=== PATIENT | female | born 1965 | race African-American/Black ===

== ENCOUNTER 2018-07-24 00:18 | Emergency (ER) | payer SELFPAY ==
[~2018-07-24] VITALS: Ht 162.6 cm; Wt 63.5 kg
--- NOTE | 2018-07-24 00:45 | Emergency Room Report ---
History of Present Illness General Chief Complaint: Skin Rash/Abscess Source: Patient Present Illness HPI Ms. Marinelli presents with rash of both hands for the last 2-4 months. She had a circular lesion on her left wrist after a tattoo 4 months ago. Did not improve. She tried oral and topical antibiotics. She now has several small round lesions on the back of both hands. 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 She wears clothes. Just less than 1 week ago she has a bug bite on right leg with blister. Allergies: Coded Allergies: No Known Allergies (Unverified , 07/24/18) Patient History Past Medical History: see triage record Last Menstrual Period: n/a Reviewed Nursing Documentation: PMH: Agreed; PSxH: Agreed Nursing Documentation-PMH Past Medical History: No Stated History Review of Systems Constitutional: Denies: fever, malaise Gastrointestinal: Denies: abdominal pain Skin: Reports: rash, lesions; Denies: change in hair/nails Neurological: Denies: headache Physical Exam Vital Signs Date Time Temp Pulse Resp B/P (MAP) Pulse Ox O2 Delivery O2 Flow Rate FiO2 07/24/18 00:23 88 16 137/86 98 Room Air Sp02 EP Interpretation: reviewed, normal General Appearance: normal inspection, well appearing, no apparent distress, alert, GCS 15, non-toxic ENT: no angioedema, moist mucus membranes Neck: full range of motion Respiratory: no respiratory distress Psychiatric: normal inspection, judgement/insight normal, memory normal Skin: rash Other Organ Systems multiple small lesions on dorsal aspect of both hands, 2 cm circular lesion on left wrist, white 4 cm plaque left knee right lower leg redness circular 3 cm area with central blister Medical Decision Making Diagnostic Impression: Primary Impression: Tinea manuum Additional Impression: Spider bite ER Course rx: clotrimazole topical, fluconazole for 4 weeks Last Vital Signs Date Time Temp Pulse Resp B/P (MAP) Pulse Ox O2 Delivery O2 Flow Rate FiO2 07/24/18 00:23 88 16 137/86 98 Room Air Liss Irene MD Jul 24, 2018 00:45
[2018-07-24] MEDS ORDERED: DIFLUCAN50 MG ORAL (00:49)
[2018-07-24] MEDS ORDERED: CLOTRIMAZOLE15 GM TOPIC (00:49)
[2018-07-24 00:55] VITALS: BP 137/86
== END 2018-07-24 00:55 | disposition home or self-care (01) ==
LOC: EMR 00:38
DX: B35.2 Tinea manuum (principal); R21 Rash and other nonspecific skin eruption; W57.XXXA Bitten or stung by nonvenomous insect and other nonvenomous arthropods, initial encounter; Y92.9 Unspecified place or not applicable
CPT/HCPCS: 99282

== ENCOUNTER 2018-07-30 17:09 | Emergency (ER) | payer SELFPAY ==
[~2018-07-30] VITALS: Ht 167.6 cm; Wt 71.7 kg
[~2018-07-30 17:09] MED LIST: CLOTRIMAZOLE15 GM TOPIC; DIFLUCAN50 MG ORAL
[2018-07-30 17:15] VITALS: BP 152/101
[2018-07-30] MEDS ORDERED: NKM (17:18)
[2018-07-30] MEDS ORDERED: CEPHALEXIN500 MG ORAL (17:43)
[2018-07-30] MEDS ORDERED: BACITRACIN-P28.35 GM TP (17:43)
--- NOTE | 2018-07-30 17:44 | Emergency Room Report ---
History of Present Illness General Chief Complaint: Skin Rash/Abscess Source: Patient Present Illness HPI 53-year-old female patient presents ER complaining of blister on right posterior lower leg. Reports has been present for almost 2 weeks. States she was seen here at [facility] 1 week ago for side right hand fungal infection on her skin , states she's been taking fungal infection on her skin but has not been provide with antibiotic medication for her blister. States that she "knows her body" and knows that this is an "infection". ports up standing vaccinations. Denies fever, chest pain, shortness of breath. Reports blister has drained "slightly". Reports tenderness to palpation. Reports running erythema. Denies red streaking. Requesting refill of topical antifungal medication given at previous visit. Allergies: Coded Allergies: No Known Allergies (Unverified , 07/24/18) Patient History Past Medical History: see triage record Last Menstrual Period: menopause Reviewed Nursing Documentation: PMH: Agreed; PSxH: Agreed Nursing Documentation-PMH Past Medical History: No Stated History Review of Systems All Other Systems: negative except mentioned in HPI Physical Exam Vital Signs Date Time Temp Pulse Resp B/P (MAP) Pulse Ox O2 Delivery O2 Flow Rate FiO2 07/30/18 17:15 97.9 74 18 152/101 99 Room Air Sp02 EP Interpretation: reviewed, normal General Appearance: well appearing, no apparent distress, alert, GCS 15, non- toxic Head: normocephalic, atraumatic Eyes: bilateral eye normal inspection, bilateral eye PERRL ENT: hearing grossly normal, normal pharynx, no angioedema, normal voice, uvula midline, moist mucus membranes Neck: full range of motion Respiratory: lungs clear, normal breath sounds, no rhonchi, no respiratory distress, no accessory muscle use, no wheezing, speaking full sentences Cardiovascular #1: regular rate, rhythm, no edema Musculoskeletal: back normal, digits/nails normal, gait/station normal, normal range of motion, non-tender Neurologic: alert, oriented x3, responsive, motor strength/tone normal, sensory intact Psychiatric: mood/affect normal Skin: other - 3 cm fluctuant blister on posterior leg, no blood within blister , mild clear drainage noted, extremity erythema, mild edema, no red streaking Medical Decision Making PA Attestation Dr. Jacobsen is my supervising Physician whom patient management has been discussed with. Diagnostic Impression: Primary Impression: Blister with infection ER Course Pt. presents to the ED c/o bug bite blister. Ddx considered but are not limited to atopic dermatitis, bug bite, urticaria, allergic reaction. Vital signs: are WNL, pt. is afebrile ER COURSE: Physical exam shows blister with surrounding erythema and mild edema, will treat with antibiotics. wound cleaned and dressed with bacitracin, will not drain blister at this time. Do not scratch, apply cool compresses to affected area. Take Claritin during the day and Benadryl at night for itching symptoms. Take Tylenol OTC for pain symptoms. Followup with PCP and request referral to derm. Provided with contact information for derm specialist. ER precautions given. Wound check in 2-3 days. DISCHARGE: -Rx given for Bacitracin -Rx given for Keflex -Rx given for topical clotrimazole At this time pt. is stable for d/c to home. Patient resting comfortably, in no acute distress, nontoxic appearing. Care plan and follow up instructions have been discussed with the patient prior to discharge. Patient provided with printed patient care instructions, and any necessary prescriptions. Patient instructed to follow-up with primary care provider in 3 - 5 days. Patient questions asked and answered. Patient reports understanding and agreement to treatment plan. ER precautions given. Patient instructed to return to ER immediately for any new or worsening of symptoms including but not limited to increasing SOB, persistent fever. - Please note that this Emergency Department Report was dictated using [employer] technology software, occasionally this can lead to erroneous entry secondary to interpretation by the dictation equipment. Last Vital Signs Date Time Temp Pulse Resp B/P (MAP) Pulse Ox O2 Delivery O2 Flow Rate FiO2 07/30/18 17:15 97.9 94 18 152/101 99 Room Air Disposition: HOME, SELF-CARE Condition: Stable Scripts Cephalexin* (KEFLEX*) 500 Mg Capsule 500 MG ORAL EVERY 12 HOURS, #14 CAP 0 Refills Prov: Dontrell Avina 07/30/18 Bacitracin/Polymyxin B Sulfate (BACITRACIN-POLYMYXIN OINTMENT) 28.35 Gm Oint...g. 1 APPLIC TP BID, #28 GM Prov: Dontrell Avina 07/30/18 Patient Instructions: Blisters, Insect Bite, [id number] Additional Instructions: Followup with primary care provider or return to ER n 2-3 days for wound check. Request referral to dermatology as needed. Apply Bacitracin to affected area. Take OTC Tylenol for pain symptoms. Continue to apply antifungal medication to areas as previously instructed. Take medications as directed. SE Benadryl drowsiness, do not take prior to drinking, driving, operating heavy machinery. Take Claritin during the day and Benadryl at night for itching symptoms. Patient questions asked and answered. ER precautions given, patient instructed to return to ER immediately for any new or worsening of symptoms. [facility] Dontrell Avina Jul 30, 2018 17:44
[2018-07-30] MEDS ORDERED: Bacitracin Oint UD TOPIC ONE (17:45)
== END 2018-07-30 18:04 | disposition home or self-care (01) ==
LOC: EMR 18:04
DX: S80.821D Blister (nonthermal), right lower leg, subsequent encounter (principal); W57.XXXD Bitten or stung by nonvenomous insect and other nonvenomous arthropods, subsequent encounter
CPT/HCPCS: 99283

== ENCOUNTER 2019-06-05 18:51 | Emergency (ER) | payer OTHER ==
[~2019-06-05] VITALS: Ht 162.6 cm; Wt 71.7 kg
[~2019-06-05 18:51] MED LIST changes: +BACITRACIN-P28.35 GM TP; +CEPHALEXIN500 MG ORAL; +NKM
[2019-06-05 19:00] VITALS: BP 147/91
[2019-06-05] MEDS: Albuterol/Ipratropium 3ml neb HHN SCH ×3 (19:24→19:44)
--- NOTE | 2019-06-05 19:29 | NUR ---
ED Nurse Note: Patient currently undegoing breathing treatment, will continue to monitor.
--- NOTE | 2019-06-05 19:43 | Emergency Room Report ---
History of Present Illness General Chief Complaint: Asthma Source: Patient Present Illness HPI 54-year-old female with history of asthma currently using Ventolin here complaining of asthma patient, sore throat cough with phlegm. Patient reports that she gets recurrent bronchitis and is a heavy tobacco smoker as well as using marijuana. Patient also reports that she suffers from anxiety and has not taken her Xanax in many months. Currently is not under treatment by psychiatrist. Patient denies any suicidal homicidal ideation. Denies change in sleep and appetite. Denies visual auditory hallucination, mood changes. Patient has multiple complaints also addresses the scaly skin lesion on the right elbow on the extensor side as well as the right knee that has been addressed many times at [facility] as well as her primary care been given multiple different creams and lotions without any improvement. Patient denies any pruritus or pain at the site. Denies chest pain, shortness of breath, dizziness and headache, palpitation, abdominal pain, nausea vomiting. Patient is asking for Xanax. Denies all other drug use. Last menstrual period was 2 weeks ago and regular. Denies fever and chill, recent travel or sick contact. Allergies: Coded Allergies: No Known Allergies (Unverified , 07/24/18) Patient History Past Medical History: see triage record Past Surgical History: unable to obtain Pertinent Family History: none Social History: Reports: smoking, drug use - THC Now: No Immunizations: UTD Reviewed Nursing Documentation: PMH: Agreed; PSxH: Agreed Nursing Documentation-PM Past Medical History: No History, Except For Hx Asthma: Yes Review of Systems All Other Systems: negative except mentioned in HPI Physical Exam Vital Signs Date Time Temp Pulse Resp B/P (MAP) Pulse Ox O2 Delivery O2 Flow Rate FiO2 06/05/19 18:58 98.6 86 20 147/91 (109) 96 Room Air 06/05/19 19:28 21 Sp02 EP Interpretation: reviewed, normal General Appearance: no apparent distress, alert, GCS 15, non-toxic Head: normocephalic, atraumatic Eyes: bilateral eye normal inspection, bilateral eye PERRL ENT: hearing grossly normal, no angioedema, normal voice, TMs + canals normal, tonsillar swelling, pharyngeal erythema Neck: full range of motion, supple, no meningismus, supple/symm/no masses Respiratory: chest non-tender, normal breath sounds, no rhonchi, speaking full sentences, wheezing - diffuse Cardiovascular #1: regular rate, rhythm, no edema, no murmur, normal capillary refill Gastrointestinal: normal bowel sounds, non tender, soft, non-distended, no guarding, no rebound Rectal: deferred Genitourinary: normal inspection, no CVA tenderness Musculoskeletal: back normal, gait/station normal, normal range of motion, non- tender, no calf tenderness Neurologic: alert, oriented x3, responsive, motor strength/tone normal, sensory intact, speech normal Psychiatric: judgement/insight normal, memory normal, mood/affect normal, no suicidal/homicidal ideation Skin: rash - Scaly rash right elbow and right knee Lymphatic: normal inspection, no adenopathy Medical Decision Making PA Attestation Diagnosis and treatment plans were reviewed and discussed with my supervising physician Dr. Decker Diagnostic Impression: Primary Impression: Asthma exacerbation Additional Impressions: Pharyngitis Scaly patch rash ER Course 54-year-old female with history of asthma currently using Ventolin here complaining of asthma patient, sore throat cough with phlegm. Patient reports that she gets recurrent bronchitis and is a heavy tobacco smoker as well as using marijuana. Patient also reports that she suffers from anxiety and has not taken her Xanax in many months. Currently is not under treatment by psychiatrist. Patient denies any suicidal homicidal ideation. Denies change in sleep and appetite. Denies visual auditory hallucination, mood changes. Patient has multiple complaints also addresses the scaly skin lesion on the right elbow on the extensor side as well as the right knee that has been addressed many times at [facility] as well as her primary care been given multiple different creams and lotions without any improvement. Patient denies any pruritus or pain at the site. Denies chest pain, shortness of breath, dizziness and headache, palpitation, abdominal pain, nausea vomiting. Patient is asking for Xanax. Denies all other drug use. Last menstrual period was 2 weeks ago and regular. Denies fever and chill, recent travel or sick contact. Ddx considered but are not limited to: strep pharyngitis, URI, tonsillitis, peritonsillar abscess, influneza, asthma exacerbation, dermatitis versus psoriatic rash, Vital signs: are WNL, pt. is afebrile H&PE are most consistent with: scaly patch rash, asthma exacerbation, pharyngitis ORDERS: Breathing treatment, albuterol, Phenergan, Medrol Dosepak, azithromycin ED INTERVENTIONS: Breathing treatment DISCHARGE: At this time pt. is stable for d/c to home. Will provide printed patient care instructions, and any necessary prescriptions. Care plan and follow up instructions have been discussed with the patient prior to discharge. I advised the patient to follow-up with her primary care provider for assessment of anxiety as well as scaly patchy rash that she has been for several months patient is to be referred to a financial administrator as well as being tested for possible psoriasis. Last Vital Signs Date Time Temp Pulse Resp B/P (MAP) Pulse Ox O2 Delivery O2 Flow Rate FiO2 06/05/19 19:34 90 18 100 Room Air 21 91 18 99 06/05/19 19:00 98.6 147/91 Disposition: HOME, SELF-CARE Condition: Stable Scripts Methylprednisolone (Methylprednisolone*) 4MG Dspk 4 MG ORAL DIRECTED for 6 Days, #21 EA 0 Refills Day 1: Two tablets before breakfast, one after lunch, one after dinner, and two at bedtime. If started late in the day, take all six tablets at once or divide into two or three doses, unless otherwise directed by prescriber. Day 2: One tablet before breakfast, one after lunch, one after dinner, and two at bedtime Day 3: One tablet before breakfast, one after lunch, one after dinner, and one at bedtime Day 4: One tablet before breakfast, one after lunch, and one at bedtime Day 5: One tablet before breakfast and one at bedtime Day 6: One tablet before breakfast Prov: Frances Andre 06/05/19 Albuterol Sulfate (VENTOLIN HFA) 18 Gm Hfa.aer.ad 2 PUFFS INH EVERY 6 HOURS, #18 GM 0 Refills Prov: Frances Andre 06/05/19 Promethazine Hcl (PROMETHAZINE HCL*) 6.25 Mg/5 Ml Syrup 5 ML ORAL Q6H, #120 ML 0 Refills Prov: Frances Andre 06/05/19 Azithromycin* (ZITHROMAX*) 250 Mg Tablet 250 MG ORAL DAILY, #6 TAB 0 Refills Take two tables once daily for 1 day, then one tablet once daily for 4 days. Prov: Frances Andre 06/05/19 Referrals: DEEDEE ONOFRE,REFERRING (PCP) Patient Instructions: Asthma, Adult, Pharyngitis, [id number], Rash Additional Instructions: Since you have seen multiple doctors and tried multiple different creams for the rash that you have been having for several months in your right elbow and right knee issues with a primary care provider as this is not a simple case of dermatitis needs referral to financial administrator as well as to be work-up for autoimmune disorders such as psoriasis and treated accordingly Frances Andre Jun 05, 2019 19:43
[2019-06-05] MEDS ORDERED: MEDROL DOSEPAK4 MG ORAL (19:44)
[2019-06-05] MEDS ORDERED: ZITHROMAX250 MG ORAL (19:44)
[2019-06-05] MEDS ORDERED: PROMETHAZI6.25 MG/1 ORAL (19:44)
[2019-06-05] MEDS ORDERED: VENTOLIN HFA18 GM INH (19:44)
[2019-06-05 20:05] VITALS: BP 147/91
--- NOTE | 2019-06-05 20:05 | NUR ---
ED Nurse Note: Pj verbalized understanding of discharge instructions. ID band removed and patient departed with all belongings.
== END 2019-06-05 20:06 | disposition home or self-care (01) ==
LOC: EMR 19:33
DX: J02.9 Acute pharyngitis, unspecified (principal); J45.901 Unspecified asthma with (acute) exacerbation; R21 Rash and other nonspecific skin eruption; F17.200 Nicotine dependence, unspecified, uncomplicated; F12.10 Cannabis abuse, uncomplicated; Z79.51 Long term (current) use of inhaled steroids
CPT/HCPCS: 94640; Z7502; 99284; J7620

== ENCOUNTER 2019-09-29 09:58 | Emergency (ER) | payer OTHER ==
[~2019-09-29] VITALS: Ht 162.6 cm; Wt 71.2 kg
[~2019-09-29 09:58] MED LIST changes: +MEDROL DOSEPAK4 MG ORAL; +PROMETHAZI6.25 MG/1 ORAL; +VENTOLIN HFA18 GM INH; +ZITHROMAX250 MG ORAL
[2019-09-29] MEDS ORDERED: PROAIR HFA8.5 GM INH (10:07)
--- NOTE | 2019-09-29 10:10 | NUR ---
ED Nurse Note: Pt walked in from home c/o painful cough and shortness of breath x 2 days. Respirations even and unlabored on room air. Vitals stable as documented. A+Ox4.
[2019-09-29 10:29] VITALS: BP 130/87
[2019-09-29] MEDS: Ipratropium 0.02% Inh Soln 2.5ml UD HHN SCH ×2 (10:41→10:59)
[2019-09-29] MEDS: Albuterol ud Inhalation HHN SCH ×2 (10:41→10:59)
--- NOTE | 2019-09-29 10:50 | NUR ---
ED Nurse Note: RT @ bedside
--- NOTE | 2019-09-29 10:58 | Emergency Room Report ---
History of Present Illness General Chief Complaint: Asthma Source: Patient Present Illness HPI 54-year-old female presents ED for evaluation. Complaining of cough and wheezing and shortness of breath for the last 2 days. History of asthma. Cough is productive with yellowish phlegm. Notes pain with coughing. Dull, 7 out of 10, nonradiating. Denies fevers or chills. States that people near her have been smoking recently. States she does not smoke. No other aggravating relieving factors. Denies any other associated symptoms Allergies: Coded Allergies: No Known Allergies (Unverified , 07/24/18) Patient History Past Medical History: asthma Pertinent Family History: none Social History: Denies: smoking, alcohol use, drug use Now: No Immunizations: UTD Reviewed Nursing Documentation: PMH: Agreed; PSxH: Agreed Nursing Documentation-PMH Past Medical History: No History, Except For Hx Asthma: Yes Review of Systems All Other Systems: negative except mentioned in HPI Physical Exam Vital Signs Date Time Temp Pulse Resp B/P (MAP) Pulse Ox O2 Delivery O2 Flow Rate FiO2 09/29/19 10:00 98.4 102 20 130/87 (101) 96 Room Air 09/29/19 10:41 21 Sp02 EP Interpretation: reviewed, normal General Appearance: no apparent distress, alert, GCS 15, non-toxic Head: normocephalic, atraumatic Eyes: bilateral eye normal inspection, bilateral eye PERRL ENT: hearing grossly normal, normal pharynx, no angioedema, normal voice Neck: full range of motion, supple/symm/no masses Respiratory: chest non-tender, lungs clear, normal breath sounds, speaking full sentences Cardiovascular #1: regular rate, rhythm, no edema Cardiovascular #2: 2+ carotid (R), 2+ carotid (L), 2+ radial (R), 2+ radial (L) , 2+ dorsalis pedis (R), 2+ dorsalis pedis (L) Gastrointestinal: normal bowel sounds, non tender, soft, non-distended, no guarding, no rebound Rectal: deferred Genitourinary: normal inspection, no CVA tenderness Musculoskeletal: back normal, normal range of motion, gait/station normal, non- tender Neurologic: alert, motor strength/tone normal, oriented x3, sensory intact, responsive, speech normal Psychiatric: judgement/insight normal, memory normal, mood/affect normal, no suicidal/homicidal ideation Reflexes: 3+ bicep (R), 3+ bicep (L), 3+ tricep (R), 3+ tricep (L), 3+ knee (R) , 3+ knee (L) Lymphatic: no adenopathy Medical Decision Making Diagnostic Impression: Primary Impression: Bronchitis ER Course Hospital Course 54-year-old female presents to ED complaining of cough Differential diagnoses include: URI, bronchitis, asthma/COPD, pneumonia Clinical course Patient placed on stretcher. After initial history and physical I ordered prednisone and nebulizer treatment. Upon reassessment patient states cough and symptoms have improved. Findings consistent with bronchitis. I discussed findings with patient. Will discharge to home. Safe for discharge for close outpatient follow-up. States she has a PMD Diagnosis - bronchitis Stable and discharged home with prescriptions for Rx prednisone, cough medication, albuterol. Instructed to followup with PMD. Return to ED if symptoms recur or worsen Last Vital Signs Date Time Temp Pulse Resp B/P (MAP) Pulse Ox O2 Delivery O2 Flow Rate FiO2 09/29/19 10:41 85 18 99 21 09/29/19 10:29 98.4 130/87 Room Air Status: improved Disposition: HOME, SELF-CARE Condition: Stable Scripts Prednisone* (PREDNISONE*) 20 Mg Tablet 40 MG ORAL DAILY, #10 TAB Prov: Devon Hale MD 09/29/19 Albuterol Sulfate (VENTOLIN HFA) 18 Gm Hfa.aer.ad 2 PUFFS INH EVERY 6 HOURS, #18 GM 0 Refills Prov: Devon Hale MD 09/29/19 Promethazine Hcl (PROMETHAZINE HCL*) 6.25 Mg/5 Ml Syrup 5 ML ORAL Q6H, #120 ML 0 Refills Prov: Devon Hale MD 09/29/19 Referrals: NON PHYSICIAN (PCP) Devon Hale MD Sep 29, 2019 10:58
[2019-09-29] MEDS ORDERED: VENTOLIN HFA18 GM INH (12:08)
[2019-09-29] MEDS ORDERED: PREDNISONE20 MG ORAL (12:08)
[2019-09-29] MEDS ORDERED: PROMETHAZI6.25 MG/1 ORAL (12:08)
[2019-09-29 12:15] VITALS: BP 129/84
--- NOTE | 2019-09-29 12:15 | NUR ---
ER DISCHARGE NOTE: Patient is cleared to be discharged per ERMD, pt is aox4, on room air, with stable vital signs. pt was given dc and prescription instructions, pt was able to verbalize understanding, pt id band removed. pt is able to ambulate with steady gait. pt took all belongings.
== END 2019-09-29 12:15 | disposition home or self-care (01) ==
LOC: EMR 10:30
DX: J20.9 Acute bronchitis, unspecified (principal)
CPT/HCPCS: J7512; Z7502; 99284

== ENCOUNTER 2020-06-17 19:44 | Emergency (ER) | payer OTHER ==
[~2020-06-17] VITALS: Ht 162.6 cm; Wt 74.8 kg
[~2020-06-17 19:44] MED LIST changes: +PREDNISONE20 MG ORAL; +PROAIR HFA8.5 GM INH
[2020-06-17 19:56] VITALS: BP 144/98
[2020-06-17 20:46] LABS: APPEARANCE,URINE SLIGHTLY CLOUDY; BILIRUBIN, URINE NEGATIVE (NEGATIVE); COLOR,URINE PALE YELLOW; GLUCOSE, URINE (UA) NEGATIVE (NEGATIVE); KETONES,URINE NEGATIVE (NEGATIVE); LEUKOCYTE ESTERASE ,URINE 3+ (NEGATIVE); NITRITE,URINE NEGATIVE (NEGATIVE); PH,URINE 5 (4.5-8.0); PROTEIN,URINE 2+ (NEGATIVE); UROBILINOGEN,URINE NORMAL MG/DL (0.0-1.0)
[2020-06-17] MEDS ORDERED: NORCO 5-325 TA1 EAC1 ORAL (21:10)
[2020-06-17] MEDS ORDERED: CIPROFLOXACIN500 M2 ORAL ×2 (21:10→21:11)
[2020-06-17] MEDS ORDERED: HYDROcodone/Acetamin 5/325 tab ORAL ONE (21:15)
[2020-06-17] MEDS ORDERED: Ciprofloxacin 500mg tab ORAL ONE (21:15)
[2020-06-17 21:19] VITALS: BP 144/98
--- NOTE | 2020-06-17 22:33 | Emergency Room Report ---
History of Present Illness General Chief Complaint: Female Urogenital Problems Source: Patient Present Illness HPI 55-year-old female otherwise no past medical history here with dysuria for 24 hours. Patient says that she has had pain on urination and some mild abdominal tenderness during urination. Pain is sharp in nature, located in the suprapubic region, does not otherwise radiate, only occurs while urinating. Does not take any medications. No other exacerbating relieving factors. No fevers, chills, chest pain, palpitation, shortness of breath, back pain, nausea, vomiting, diarrhea. 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: Yes COVID-19 Screening: Negative COVID-19 COVID-19 Testing Source: 04/05/2020 Patient History Now: No Nursing Documentation-[facility] Past Medical History: No History, Except For Hx Asthma: Yes Review of Systems All Other Systems: negative except mentioned in HPI Physical Exam Vital Signs Date Time Temp Pulse Resp B/P (MAP) Pulse Ox O2 Delivery O2 Flow Rate FiO2 06/17/20 19:52 97.7 90 21 144/98 (113) 95 Room Air Sp02 EP Interpretation: reviewed, normal General Appearance: no apparent distress, alert, non-toxic Head: normocephalic, atraumatic Eyes: bilateral eye normal inspection, bilateral eye PERRL ENT: hearing grossly normal, normal pharynx, no angioedema, normal voice Neck: full range of motion, supple/symm/no masses Respiratory: chest non-tender, lungs clear, normal breath sounds, speaking full sentences Cardiovascular #1: regular rate, rhythm, no edema Cardiovascular #2: 2+ carotid (R), 2+ carotid (L), 2+ radial (R), 2+ radial (L), 2+ dorsalis pedis (R), 2+ dorsalis pedis (L) Gastrointestinal: normal bowel sounds, non tender, soft, non-distended, no guarding, no rebound Rectal: deferred Genitourinary: normal inspection, no CVA tenderness, other - Mild suprapubic tenderness on palpation Musculoskeletal: back normal, normal range of motion, calf tenderness, gait/station normal, non-tender Neurologic: alert, motor strength/tone normal, oriented x3, sensory intact, responsive, speech normal Psychiatric: judgement/insight normal, memory normal, mood/affect normal, no suicidal/homicidal ideation Reflexes: 3+ bicep (R), 3+ bicep (L), 3+ tricep (R), 3+ tricep (L), 3+ knee (R), 3+ knee (L) Lymphatic: no adenopathy Medical Decision Making Diagnostic Impression: Primary Impression: Dysuria Additional Impression: UTI (urinary tract infection) ER Course Laboratory Tests Test 06/17/20 20:25 Urine Color Pale yellow Urine Appearance Slightly cloudy Urine pH 5 (4.5-8.0) Urine Specific [place] 1.010 (1.005-1.035) Urine Protein 2+ (NEGATIVE) H Urine Glucose (UA) Negative (NEGATIVE) Urine Ketones Negative (NEGATIVE) Urine Blood 5+ (NEGATIVE) H Urine Nitrite Negative (NEGATIVE) Urine Bilirubin Negative (NEGATIVE) Urine Urobilinogen Normal MG/DL (0.0-1.0) Urine Leukocyte Esterase 3+ (NEGATIVE) H Urine RBC 10-15 /HPF (0 - 2) H Urine WBC Tntc /HPF (0 - 2) H Urine Squamous Epithelial Cells Few /LPF (NONE/OCC) Urine Bacteria Moderate /HPF (NONE) H 55-year-old female here with dysuria. Patient had urinary tract infection evidenced within the urinalysis. Urine cultures currently pending. Patient later told me that she was feeling some very mild flank tenderness. However she had no CVA tenderness on palpation. Patient was afebrile and otherwise had normal vital signs in the emergency department. She was given a dose of ciprofloxacin and a dose of [place] in the emergency department. Given prescriptions for these 2 same medications. Told to come back to the emergency department she has any worsening fevers, chills, back pain. She expressed under standing and was discharged. Last Vital Signs Date Time Temp Pulse Resp B/P (MAP) Pulse Ox O2 Delivery O2 Flow Rate FiO2 06/17/20 21:19 97.7 90 21 144/98 95 Room Air Disposition: HOME, SELF-CARE Condition: Stable Scripts Ciprofloxacin Hcl* (CIPROFLOXACIN HCL*) 500 Mg Tablet 500 MG ORAL Q12H, #14 TAB 0 Refills Prov: Francisco Morin M.D. 06/17/20 Hydrocodone Bit/Acetaminophen 5-325* (NORCO 5-325 TABLET*) 1 Each Tablet 1 TAB ORAL Q4H PRN for For Pain, #10 TAB Prov: Francisco Morin M.D. 06/17/20 Ciprofloxacin Hcl* (CIPROFLOXACIN HCL*) 500 Mg Tablet 500 MG ORAL Q12H, #14 TAB 0 Refills Prov: Francisco Morin M.D. 06/17/20 Referrals: [facility] Patient Instructions: Urinary Tract Infection Francisco Morin M.D. Jun 17, 2020 22:33
== END 2020-06-17 21:20 | disposition home or self-care (01) ==
LOC: EMR 20:40
DX: N39.0 Urinary tract infection, site not specified (principal)
CPT/HCPCS: 81003; 87086; 87181; Z7502; 99282

== ENCOUNTER 2020-10-18 05:39 | Emergency (ER) | payer OTHER ==
[~2020-10-18] VITALS: Ht 162.6 cm; Wt 65.8 kg
[~2020-10-18 05:39] MED LIST changes: +CIPROFLOXACIN500 M2 ORAL; +NORCO 5-325 TA1 EAC1 ORAL
--- NOTE | 2020-10-18 06:24 | Emergency Room Report ---
History of Present Illness General Chief Complaint: Dyspnea/Respdistress Source: Patient Present Illness HPI 55-year-old female history of asthma, presents with increased shortness of breath, chest tightness ongoing for the past day patient has been running low on her inhalers, no dyspnea on exertion no heart pain severity is moderate, constant alleviated with albuterol no aggravating factors. Patient also e ndorses cough, no fevers no chills no body aches Allergies: Coded Allergies: No Known Allergies (Unverified , 07/24/18) COVID-19 Screening Contact w/high risk pt: No Experienced COVID-19 symptoms?: Yes COVID-19 Testing performed YARN WRAPPER: No Patient History Past Medical History: see triage record Social History: Reports: smoking Reviewed Nursing Documentation: PMH: Agreed; PSxH: Agreed Nursing Documentation-PMH Hx Asthma: Yes Review of Systems All Other Systems: negative except mentioned in HPI Physical Exam Vital Signs Date Time Temp Pulse Resp B/P (MAP) Pulse Ox O2 Delivery O2 Flow Rate FiO2 10/18/20 05:50 98.1 85 19 120/74 (89) 95 Room Air Sp02 EP Interpretation: reviewed, normal General Appearance: well appearing, no apparent distress, alert Head: normocephalic, atraumatic Eyes: bilateral eye PERRL, bilateral eye EOMI ENT: uvula midline, moist mucus membranes Neck: supple, thyroid normal, supple/symm/no masses Respiratory: no respiratory distress, no retraction, no accessory muscle use, decreased breath sounds - Bilaterally reduced air movement no wheezing heard Cardiovascular #1: normal peripheral pulses, regular rate, rhythm, no edema, no gallop, no murmur Gastrointestinal: non tender, soft, no guarding, no rebound Musculoskeletal: normal inspection Neurologic: alert, oriented x3 Psychiatric: mood/affect normal Skin: no rash, warm/dry Other Organ Systems Cigar Bander Hand Grazyna Mccann RN Medical Decision Making Diagnostic Impression: Primary Impression: Asthma exacerbation Qualified Codes: J45.901 - Unspecified asthma with (acute) exacerbation ER Course 55-year-old female presents with acute shortness of breath differential diagnosis includes ACS, asthma exacerbation, pneumonia Chest x-ray negative, EKG negative, troponin negative patient improved with steroid ministration, patient given 12 mg of dexamethasone, additionally patient also improved with Combivent Reevaluation at 7:45 AM patient's breathing improved, patient felt better Disposition home with return precautions follow-up with PCP Laboratory Tests Test 10/18/20 06:44 10/18/20 07:15 White Blood Count 6.4 K/UL (4.8-10.8) Red Blood Count 4.27 M/UL (4.20-5.40) Hemoglobin 13.3 G/DL (12.0-16.0) Hematocrit 42.2 % (37.0-47.0) Mean Corpuscular Volume 99 FL (80-99) Mean Corpuscular Hemoglobin 31.0 PG (27.0-31.0) Mean Corpuscular Hemoglobin Concent 31.4 G/DL (32.0-36.0) L Red Cell Distribution Width 13.2 % (11.6-14.8) Platelet Count 251 K/UL (150-450) Mean Platelet Volume 9.0 FL (6.5-10.1) Neutrophils (%) (Auto) 57.0 % (45.0-75.0) Lymphocytes (%) (Auto) 33.1 % (20.0-45.0) Monocytes (%) (Auto) 5.1 % (1.0-10.0) Eosinophils (%) (Auto) 3.2 % (0.0-3.0) H Basophils (%) (Auto) 1.6 % (0.0-2.0) Sodium Level 144 MMOL/L (136-145) Potassium Level 3.9 MMOL/L (3.5-5.1) Chloride Level 110 MMOL/L (98-107) H Carbon Dioxide Level 27 MMOL/L (21-32) Anion Gap 7 mmol/L (5-15) Blood Urea Nitrogen 12 mg/dL (7-18) Creatinine 0.7 MG/DL (0.55-1.30) Estimated Glomerular Filtration Rate > 60 mL/min (>60) Glucose Level 112 MG/DL (74-106) H Calcium Level 9.8 MG/DL (8.5-10.1) Total Bilirubin 0.3 MG/DL (0.2-1.0) Aspartate Amino Transferase (AST) 18 U/L (15-37) Alanine Aminotransferase (ALT) 22 U/L (12-78) Alkaline Phosphatase 93 U/L (46-116) Troponin I 0.011 ng/mL (0.000-0.056) Total Protein 7.8 G/DL (6.4-8.2) Albumin 3.8 G/DL (3.4-5.0) Globulin 4.0 g/dL Albumin/Globulin Ratio 0.9 (1.0-2.7) L EKG Diagnostic Results Troponin ordered: Yes When was troponin ordered?: Oct 18, 2020 EKG Time: 06:11 EP Interpretation: NSR, rate 83, QTc 434, no acute ST elevations, normal axis Rhythm Strip Diag. Results Rhythm Strip Time: 06:23 EP Interpretation: yes Rate: 81 Rhythm: NSR, no PVC's, no ectopy Chest X-Ray Diagnostic Results Chest X-Ray Diagnostic Results : Chest X-Ray Ordered: Yes # of Views/Limited/Complete: 1 View Indication: Chest Pain EP Interpretation: Yes Interpretation: no consolidation, no effusion, no pneumothorax, no acute cardiopulmonary disease Impression: No acute disease Electronically Signed by: Caleb Decker MD Last Vital Signs Date Time Temp Pulse Resp B/P (MAP) Pulse Ox O2 Delivery O2 Flow Rate FiO2 10/18/20 05:50 98.1 85 19 120/74 (89) 95 Room Air Disposition: HOME, SELF-CARE Condition: Stable Scripts Albuterol Sulfate (Albuterol Sulfate Hfa) 8.5 Gm Hfa.aer.ad 8.5 GM IH Q4HR PRN for Shortness of Breath for 30 Days, #1 UNIT Prov: Caleb Decker MD 10/18/20 [albuterol] No Conflict Check Prov: Caleb Decker MD 10/18/20 Referrals: [facility],REFER (PCP) [facility] Patient Instructions: Asthma, Adult, [id number] Additional Instructions: The patient was provided with discharge instructions, notified to follow-up with a primary care doctor and or specialist in the next 24-48 hours, and to return to the ED if they have worsening of their symptoms. Please note that this report is being documented using [employer] technology. This can lead to erroneous entry secondary to incorrect interpretation by the dictating instrument. Caleb Decker MD Oct 18, 2020 06:24
--- NOTE | 2020-10-18 06:40 | NUR ---
ED Nurse Note: Patient came to ED complaining of asthma flare for the past two days. Patient reports difficulty taking deep breaths, not as bad as yesterday, and moderate cough. She is febrile. Patient also reports that she is running out of her inhalers, last PCP visit over one year ago. Addendum: 10/18/20 at 0703 by JERRY Amendment undone in EDM - 10/18/20 at 0707 by JERRY ED Nurse Note: Patient came to ED complaining of moderate cough for the past two days, difficulty taking deep breaths yesterday. Patient today is afebrile, last PCP visit over one year ago.Denies SOB, chest pain.
[2020-10-18 07:10] LABS: BASOPHILS % (AUTO) 1.6 % (0.0-2.0); EOSINOPHILS % (AUTO) 3.2 % (0.0-3.0); HEMATOCRIT 42.2 % (37.0-47.0); HEMOGLOBIN 13.3 G/DL (12.0-16.0); LYMPHOCYTES % (AUTO) 33.1 % (20.0-45.0); MEAN CORPUSCULAR VOLUME 99 FL (80-99); MONOCYTES % (AUTO) 5.1 % (1.0-10.0); PLATELET COUNT 251 K/UL (150-450); RED BLOOD COUNT 4.27 M/UL (4.20-5.40); RED CELL DISTRIBUTION WIDTH 13.2 % (11.6-14.8); WHITE BLOOD COUNT 6.4 K/UL (4.8-10.8)
--- NOTE | 2020-10-18 07:30 | NUR ---
Received patient on COS. AAOX4. ADLS performed independently. V/S WNL. Troponin redrawn due to hemolization on prior draw. Awaiting discharge upon results of Troponin.
--- NOTE | 2020-10-18 07:44 | Diagnostic Imaging Report ---
EXAM: XR Chest, 1 View CLINICAL HISTORY: SOB TECHNIQUE: Frontal view of the chest. COMPARISON: Chest radiograph August 09, 2007. FINDINGS/IMPRESSION: No focal infiltrate. No pleural effusion or pneumothorax. Mild, chronically increased interstitial markings. Mildly prominent heart size.
[2020-10-18 07:50] VITALS: BP 134/84
[2020-10-18 07:58] LABS: ANION GAP 7 mmol/L (5-15); BLOOD UREA NITROGEN 12 mg/dL (7-18); CALCIUM 9.8 MG/DL (8.5-10.1); CARBON DIOXIDE 27 MMOL/L (21-32); CHLORIDE 110 MMOL/L (98-107); CREATININE 0.7 MG/DL (0.55-1.30); POTASSIUM 3.9 MMOL/L (3.5-5.1); SODIUM 144 MMOL/L (136-145)
[2020-10-18 08:02] LABS: ALANINE AMINOTRANSFERASE 22 U/L (12-78); ALBUMIN 3.8 G/DL (3.4-5.0); ALBUMIN/GLOBULIN RATIO 0.9 (1.0-2.7); ALKALINE PHOSPHATASE 93 U/L (46-116); ASPARTATE AMINO TRANSFERASE 18 U/L (15-37); BILIRUBIN,TOTAL 0.3 MG/DL (0.2-1.0)
[2020-10-18] MEDS ORDERED: albuterol (08:16)
[2020-10-18] MEDS ORDERED: ALBUTEROL SULF8.5 G2 IH (08:16)
[2020-10-18] MEDS ORDERED: IBUPROFEN600 M1 ORAL (08:19)
== END 2020-10-18 08:25 | disposition home or self-care (01) ==
LOC: EMR 06:07
DX: J45.901 Unspecified asthma with (acute) exacerbation (principal); F17.200 Nicotine dependence, unspecified, uncomplicated
CPT/HCPCS: 36415; 71045; 80053; 84484; 85025; 93005; J8540; U0004; Z7502; 99284